=== PATIENT | male | born 1995 | race Caucasian/White ===

== ENCOUNTER 2017-05-11 11:06 | Emergency (ER) | payer MEDICAID, OTHER ==
[~2017-05-11] VITALS: Ht 162.6 cm; Wt 70.8 kg
[2017-05-11 11:11] VITALS: BP 134/67
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
[2017-05-11] MEDS ORDERED: KETOROLAC 30 MG/ML VIAL IM ONE (11:45)
--- NOTE | 2017-05-11 11:51 | NUR ---
PT TAKEN TO XRAY VIA W/C ACCOMPANIED BY TECH.
--- NOTE | 2017-05-11 12:04 | NUR ---
PT BACK FROM X RAY
[2017-05-11 12:21] VITALS: BP 119/71
--- NOTE | 2017-05-11 12:21 | NUR ---
Patient discharged with v/s stable. Written and verbal after care instructions given and explained. Patient alert, oriented and verbalized understanding of instructions. Ambulatory with steady gait. All questions addressed prior to discharge. ID band removed. Patient advised to follow up with PMD. Rx of NAPROSYN & FLEERIL given. Patient educated on indication of medication including possible reaction and side effects. Opportunity to ask questions provided and answered.
== END 2017-05-11 12:21 | disposition home or self-care (01) ==
LOC: MED 11:06
DX: M54.5 Low back pain (principal); F12.10 Cannabis abuse, uncomplicated
CPT/HCPCS: 72100; 96372; 99284; J1885

== ENCOUNTER 2018-09-01 17:52 | Emergency (ER) | payer MEDICAID ==
[~2018-09-01] VITALS: Ht 165.1 cm; Wt 66.5 kg
[2018-09-01 18:17] VITALS: BP 121/79
--- NOTE | 2018-09-01 20:21 | NUR ---
CALLED FOR PT IN LOBBY NO ANSWER
--- NOTE | 2018-09-01 20:26 | NUR ---
CALLED FOR PT IN LOBBY NO ANSWER
--- NOTE | 2018-09-01 20:35 | NUR ---
CALLED FOR PT IN LOBBY NO ANSWER. PATIENT LEFT WITHOUT BEING SEEN BY DR. SANDOVAL. NO FURTHER CARE PROVIDED FOR PATIENT.
== END 2018-09-01 20:21 | disposition left against medical advice (07) ==
LOC: MED 17:52
DX: M54.5 Low back pain (principal); Z53.21 Procedure and treatment not carried out due to patient leaving prior to being seen by health care provider

== ENCOUNTER 2018-09-02 15:07 | Emergency (ER) | payer MEDICAID ==
[~2018-09-02] VITALS: Ht 162.6 cm; Wt 66.2 kg
[2018-09-02 15:19] VITALS: BP 104/59
--- NOTE | 2018-09-02 15:26 | NUR ---
PATIENT AMBULATED TO BED 8
--- NOTE | 2018-09-02 15:28 | NUR ---
PT AMB TO RESTROOM STEADY GAIT
--- NOTE | 2018-09-02 15:28 | NUR ---
23 Y MALE BIB SELF C/O LEFT LOWER BACK PAIN 3 WEEKS. DENIES N/V/D OR TRAUMA OR DYSURIA. PAIN 11/08. -N/V/D. 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 WHEN ASKED PT TO DEMONSTRATE PROPER LIFTING TECHNIQUES, PT BENT AT HIS WAIST CAUSING HIS BACK TO BEND IMPROPERLY. PT INSTRUCTED TO BEND AT HIS KNEES AND USE HIS LEGS TO CARRY THE WEIGHT TO RELIEVE HIS BACK. VSS AT THIS TIME. PT AA0X4. BED IS DOWN, LOCKED, BED RAIL X 1, ERMD TO SEE PT. MED HX : DENIES
--- NOTE | 2018-09-02 15:31 | NUR ---
DR PEGUERO AT BEDSIDE
[2018-09-02] MEDS ORDERED: IBUPROFEN 600 MG TAB PO ONE (15:40)
--- NOTE | 2018-09-02 15:40 | NUR ---
PT GIVEN MOTRIN PO FOR PAIN
[2018-09-02 16:00] VITALS: BP 104/59
--- NOTE | 2018-09-02 16:00 | NUR ---
Patient discharged with v/s stable. Written and verbal after care instructions given and explained. Patient alert, oriented and verbalized understanding of instructions. Ambulatory with steady gait. All questions addressed prior to discharge. ID band removed. Patient advised to follow up with PMD. Rx of IBUPROFEN, FLEXERIL given. Patient educated on indication of medication including possible reaction and side effects. Opportunity to ask questions provided and answered.
== END 2018-09-02 16:00 | disposition home or self-care (01) ==
LOC: MED 15:07
DX: M54.5 Low back pain (principal)
CPT/HCPCS: 81002; 99283

== ENCOUNTER 2021-03-31 12:23 | Emergency (ER) | payer MEDICAID ==
[~2021-03-31] VITALS: Ht 162.6 cm; Wt 75.5 kg
[2021-03-31] MEDS ORDERED: LORazepam 1 MG TAB PO ONE (13:35)
[2021-03-31 16:32] LABS: BASOPHILS % (AUTO) 0.5 % (0.0-2.0); EOSINOPHILS # (AUTO) 0.2 K/uL (0-0.4); EOSINOPHILS % (AUTO) 2.7 % (0.0-4.0); HEMATOCRIT 48.9 % (36-52); LYMPHOCYTES # (AUTO) 1.9 K/uL (2.0-11.5); LYMPHOCYTES % (AUTO) 27.2 % (20.5-51.1); MEAN CORPUSCULAR HEMOGLOBIN 31 pg (27-31); MEAN CORPUSCULAR HGB CONC 35 g/dL (33-37); MEAN CORPUSCULAR VOLUME 89.5 fL (80-94); MONOCYTES # (AUTO) 0.6 K/uL (0.8-1.0); MONOCYTES % (AUTO) 8.4 % (1.7-9.3); NEUTROPHILS # (AUTO) 4.2 K/uL (1.8-7.7); NEUTROPHILS % (AUTO) 61.2 % (42.2-75.2); PLATELET COUNT (AUTO) 341 K/uL (140-450); RED BLOOD CELL COUNT(AUTO) 5.46 MIL/uL (4.20-6.10); WHITE BLOOD COUNT (AUTO) 6.9 K/uL (4.8-10.8)
[2021-03-31 16:48] LABS: ALBUMIN 4.4 g/dL (3.4-5.0); ANION GAP 10.9 (8-16); CARBON DIOXIDE 32.1 mmol/L (21-32); TOTAL BILIRUBIN 3.3 mg/dL (0.0-1.0)
--- NOTE | 2021-03-31 17:20 | NUR ---
PT SEEN AND D/C BY DR SANDOVAL, NO NURSING INTERVENTIONS PROVIDED
--- NOTE | 2021-03-31 17:21 | NUR ---
PT CLEARED FOR DISCHARGE BY DR SANDOVAL, PT LEFT WITHOUT DISCHARGE PAPERWORK,.
--- NOTE | 2021-03-31 17:22 | NUR ---
Arvin gonzalez in EDM - 03/31/21 at 2019 by [facility] Patient discharged with v/s stable. Written and verbal after care instructions ABOUT STIMULANT USE DISORDER given and explained. Patient verbalized understanding. Ambulatory with steady gait. All questions addressed prior to discharge. Advised to follow up with PMD.
== END 2021-03-31 17:22 | disposition home or self-care (01) ==
LOC: MED 12:23
DX: F14.129 Cocaine abuse with intoxication, unspecified (principal); R07.89 Other chest pain
CPT/HCPCS: 36415; 71045; 80053; 83880; 84484; 85025; 93005; 99285